=== PATIENT | female | born 1945 | race Caucasian/White ===

== ENCOUNTER 2025-02-14 18:50 | Emergency (ER) | payer BC, OTHER ==
[~2025-02-14] VITALS: Ht 152.4 cm; Wt 88.5 kg
--- NOTE | 2025-02-14 19:24 | ED.PDOC ---
History of Present Illness(SKN HPI Comments A 79 year-old female presents to the ED with a chief complaint of puncture wound to the R hand with associated surrounding erythema, swelling, and pain S/P cat bite X4 days ago. Patient states she was seen at Urgent Care the day of the incident and sent home with Augmentin. Patient states she took Augmentin daily, as prescribed. Patient went to Urgent Care again today and was told to come to the ED for further evaluation. Patient has no further complaints at this time. Vital signs were stable. Chief Complaint: Animal Bite Time Seen by MD: 19:12 History of Present Illness: Nurses Notes, Medications, Allergies Information Source: Patient Mode of Arrival: Ambulatory Severity: Moderate Timing: Days Duration: Since onset Prehospital treatment: None Location: Hand (Right ) Mechanism: Cat Developed: Generalized erythema Occurence: Indoors Tetanus: UTD Associated Signs and Symptoms: Redness, Swelling Past Medical History PAST MEDICAL HISTORY: Denies Surgical History: Denies all surgeries GLOBAL ACCOUNT EXECUTIVE History: No Pertinent GLOBAL ACCOUNT EXECUTIVE History Family History Family History: Reviewed,noncontributory to illness, No family hx of Cancer, No family hx of DM, No family hx of Heart macrina, No family hx of HTN, No family hx ofKidney macrina, No family hx of Liver macrina, No family hx of Lung macrina, No family hx of Stroke Social History Smoker: Non-Smoker Alcohol: Denies ETOH Use Drugs: Denies Drug Use Lives In: Home Constitutional: denies: chills, diaphoresis, fatigue, fever, malaise, sweats, weakness, others EENTM: denies: blurred vision, double vision, ear bleeding, ear discharge, ear drainage, ear pain, ear ringing, eye pain, eye redness, hearing loss, mouth pain, mouth swelling, nasal discharge, nose bleeding, nose congestion, nose pain, photophobia, tearing, throat pain, throat swelling, voice changes, others Respiratory: denies: cough, hemoptysis, orthopnea, SOB at rest, shortness of breath, SOB with excertion, stridor, wheezing, others Cardiovascular: denies: chest pain, dizzy spells, diaphoresis, Dyspnea on exertion, edema, irregular heart beat, left arm pain, lightheadedness, palpitations, PND, syncope, others Gastrointestinal: denies: abdomen distended, abdominal pain, blood streaked bowels, constipated, diarrhea, dysphagia, difficulty swallowing, hematemesis, melena, nausea, poor appetite, poor fluid intake, rectal bleeding, rectal pain, vomiting, others Genitourinary: denies: abnormal vagina bleeding, burning, dyspareunia, dysuria, flank pain, frequency, hematuria, incontinence, pain, , vagina discharge, urgency, others Neurological: denies: dizziness, fainting, headache, left sided numbness, left sided weakness, numbness, paresthesia, pre-existing deficit, right sided numbness, right sided weakness, seizure, speech problems, tingling, tremors, weakness, others Musculoskeletal: denies: back pain, gout, joint pain, joint swelling, muscle pain, muscle stiffness, neck pain, others Integumetry: reports: wounds (with surrounding erythema ), others (pain and swelling at the site ); denies: bruises, change in color, change in hair/nails, dryness, laceration, lesions, lumps, rash Allergic/Immunocompromised: denies: Difficulty Healing, Frequent Infections, Hives, Itching, others Hematologic/Lymphatic: denies: anemia, blood clots, easy bleeding, easy bruising, swollen glands, others Endocrine: denies: excessive hunger, excessive sweating, excessive thirst, excessive urination, flushing, intolerance to cold, intolerance to heat, unexplained weight gain, unexplained weight loss, others Psychiatric: denies: anxiety, bipolar disorder, depression, hopeless, panic disorder, schizophrenia, sleepless, suicidal, others All Other Systems: Reviewed and Negative Physical Exam General Appearance: Mild Distress (Moderate distress due to right hand pain concerns.), Obese HEENT: Normal ENT Inspection, Pharynx Normal, TMs Normal Neck: Full Range of Motion, Non-Tender, Normal, Normal Inspection Respiratory: Chest Non-Tender, Lungs Clear, No Accessory Muscle Use, No Respiratory Distress, Normal Breath Sounds Cardiovascular: No Edema, No JVD, No Murmur, No Gallop, Normal Peripheral Pulses, Regular Rate/Rhythm Breast Exam: Deferred Gastrointestinal: No Organomegaly, Non Tender, No Pulsatile Mass, Normal Bowel Sounds, Soft Genitalia: Deferred Pelvic: Deferred Rectal: Deferred Extremities: Other (Patient displays erythema and edema throughout the lateral aspect and dorsal aspect of the right hand extending from the 1st digit through the 3rd digit. Multiple puncture wounds noted from prior cat bite. Wound a ppears angry. No weeping noted.) Neurologic: Alert Cerebellar Function: NOT DONE Reflexes: NOT DONE Skin: Dry, Normal Color, Warm Lymphatic: No Adenopathy Was a procedure done? Was a procedure done?: No Differential Diagnosis (INTG) Differential Diagnosis: Cellulitis, Puncture Wound, Other (Cat bite) X-Ray, Labs, Meds, VS Vital Signs Date Time Temp Pulse Resp B/P (MAP) Pulse Ox O2 Delivery O2 Flow Rate FiO2 02/14/25 18:56 98.1 93 18 146/65 97 98.1 Lab Test 02/14/25 19:37 Range/Units White Blood Count 13.7 H 4.4-10.8 10^3/uL Red Blood Count 4.57 4.0-5.20 10^6/uL Hemoglobin 13.2 12.2-16.2 g/dL Hematocrit 39.0 36.0-46.0 % Mean Corpuscular Volume 85.3 80.0-100.0 fL Mean Corpuscular Hemoglobin 28.8 28.0-32.0 pg Mean Corpuscular Hemoglobin Concent 33.8 32.0-36.0 g/dL Red Cell Distribution Width 14.1 11.8-14.3 % Platelet Count 320 140-450 10^3/uL Mean Platelet Volume 7.2 6.9-10.8 fL Neutrophils (%) (Auto) 73.1 37.0-80.0 % Lymphocytes (%) (Auto) 18.5 10.0-50.0 % Monocytes (%) (Auto) 5.8 0.0-12.0 % Eosinophils (%) (Auto) 1.8 0.0-7.0 % Basophils (%) (Auto) 0.8 0.0-2.0 % Neutrophils # (Auto) 10.0 H 1.6-8.6 10 ^3/uL Lymphocytes # (Auto) 2.5 0.4-5.4 10 ^3/uL Monocytes # (Auto) 0.8 0-1.3 10 ^3/uL Eosinophils # (Auto) 0.3 0-0.8 10 ^3/uL Basophils # (Auto) 0.1 0-0.2 10 ^3/uL Nucleated Red Blood Cells 0.1 % Sodium Level 140 136-145 mmol/L Potassium Level 3.7 3.5-5.1 mmol/L Chloride Level 103 98-107 mmol/L Carbon Dioxide Level 26 20-31 mmol/L Anion Gap 11 5-15 Blood Urea Nitrogen 10 9-23 mg/dL Creatinine 0.78 0.550-1.02 mg/dL Glomerular Filtration Rate Calc 76 >90 mL/min BUN/Creatinine Ratio 12.8 10.0-20.0 Serum Glucose 163 H 74-106 mg/dL Lactic Acid Level 1.0 0.4-2.0 mmol/L Calcium Level 9.6 8.7-10.4 mg/dL [facility] [id number] [place] [address] Ph: [phone] DIAGNOSTIC IMAGING Diagnostic Imaging Report : [id number] Signed PATIENT: JUAN TORREZACCT: [id number] UNIT: [id number] : 1945 LOC: ER ROOM / BED: / AGE / SEX: 79 / F ADM STATUS: REG ER SERVICE 10 ORDERING PHYSICIAN: JAMES DIA PAC PROCEDURE(s): RHAN - R HAND 3 VIEW XRAY REASON: Cat bite/cellulitis/abscess evaluation ORDER NUMBER(s): [id number], ACCESSION NUMBER(s): [id number] EXAM: XY R HAND 3 VIEW XRAY INDICATION: Cat bite/cellulitis/abscess evaluation TECHNIQUE: 3 views of the right hand COMPARISON: None FINDINGS/IMPRESSION: No radiographic evidence of an acute osseous abnormality. There is no acute fr acture, osseous malalignment, or aggressive focal osseous lesion. Mild degenerative change of the distal interphalangeal joints with joint space loss. Mild degenerative change of the 1st carpometacarpal joint diffusely decreased bone mineral density. X-Ray, Labs, Meds, VS Comment All studies performed the ED were evaluated by me personally. Serum studies were unremarkable for any systemic concerns and x-ray was unremarkable for any foreign body or subcutaneous gas trapping. Patient was given a dose of Rocephin prior to discharge. Additional antibiotics will be added to the patient's current Augmentin medication. Images Reviewed?: Images reviewed and evaluated by me Time of 1ST Reevaluation: 22:14 Reevaluation 1ST: Improved Consultation: PCP Patient Education/Counseling: Diagnosis, Treatment Family Education/Counseling: Diagnosis, Treatment, No Family Present Medical Screening: No EMC Exist At This Time SEPSIS Sepsis Screen Date sepsis recognized/suspect: Feb 14, 2025 Time Sepsis recognized/suspect: 1857 Recent Procedure: No On Antibiotic Therapy: No Respiratory Rate >20: No Heart Rate >90: No Temp<36 C (96.8 F) or >38.3 C: No SBP <90 or MAP <65 mmHG: No New Acute Mental Status Change: No Is the patient on CPAP, BIPAP,: No Physician Orders R Hand 3 View Xray (02/14/25 19:11) Ceftriaxone Ivpb Rocephin (02/14/25 22:15) Dexamethasone Injection (Decadron Inject (02/14/25 22:15) Vital Signs Date Time Temp Pulse Resp B/P (MAP) Pulse Ox O2 Delivery O2 Flow Rate FiO2 02/14/25 18:56 98.1 93 18 146/65 97 98.1 Laboratory Tests Test 02/14/25 19:37 Lactic Acid Level 1.0 mmol/L (0.4-2.0) White Blood Count 13.7 10^3/uL (4.4-10.8) H Departure 1 Departure Time of Disposition: 22:15 Impression: Primary Impression: Cellulitis Disposition: HOME / SELF CARE / HOMELESS Condition: Stable Additional Instructions: Advised patient to continue with the Augmentin as prescribed and add the Bactrim to the antibiotic schedule. Pain medication as needed. e-Prescriptions Ibuprofen (Ibuprofen) 600 Mg Tab 1 TAB PO Q6HP PRN, #20 TAB Prov: JAMES DIA PAC 02/14/25 Sulfamethoxazole W/Trimethopri (Bactrim Ds Tablet) 1 Tab Tb 1 TAB PO BID for 10 Days, #20 TAB Prov: JAMES DIA PAC 02/14/25 Discharged With: Self, Friend Critical Care Note Critical Care Time?: No Stability Stability form required: No Heart Score Heart Score: Heart Score Response (Comments) Value History N/A 0 EKG N/A 0 Age N/A 0 Risk Factors N/A 0 Troponin N/A 0 Total 0 I personally scribed for JAMES DIA PAC ([email or web address]) on 9/27/25 at 19:24. Electronically submitted by Jasmin Russo ([email or web address]). I personally scribed for JAMES DIA PAC ([email or web address]) on 02/14/25 at 19:27. Electronically submitted by Jasmin Russo ([email or web address]). I personally scribed for JAMES DIA PAC ([employer]) on 02/14/25 at 19:44. Electronically submitted by Jasmin Russo ([email or web address]). JAMES DIA PAC Feb 14, 2025 19:24
--- NOTE | 2025-02-14 19:40 | DVH ---
EXAM: XY R HAND 3 VIEW XRAY INDICATION: Cat bite/cellulitis/abscess evaluation TECHNIQUE: 3 views of the right hand COMPARISON: None FINDINGS/IMPRESSION: No radiographic evidence of an acute osseous abnormality. There is no acute fracture, osseous malalig nment, or aggressive focal osseous lesion. Mild degenerative change of the distal interphalangeal jimy nts with joint space loss. Mild degenerative change of the 1st carpometacarpal joint diffusely decrea sed bone mineral density.
[2025-02-14 19:52] LABS: Hematocrit 39.0 % (36.0-46.0); Hemoglobin 13.2 g/dL (12.2-16.2); Mean Corpuscular Hemoglobin 28.8 pg (28.0-32.0); Mean Corpuscular Volume 85.3 fL (80.0-100.0); Nucleated Red Blood Cells % 0.1 %
[2025-02-14 20:03] LABS: Chloride 103 mmol/L (98-107); Potassium 3.7 mmol/L (3.5-5.1); Sodium 140 mmol/L (136-145)
[2025-02-14 20:04] LABS: Anion Gap 11 (5-15); Calcium 9.6 mg/dL (8.7-10.4); Carbon Dioxide 26 mmol/L (20-31)
[2025-02-14 20:09] LABS: BUN/Creatinine Ratio 12.8 (10.0-20.0); Blood Urea Nitrogen 10 mg/dL (9-23)
[2025-02-14 20:15] LABS: Glucose 163 mg/dL (74-106)
[2025-02-14] MEDS ORDERED: IBUP-1454 PO (22:16)
[2025-02-14] MEDS ORDERED: BACDST PO (22:16)
[2025-02-14 22:34] VITALS: BP 136/62; PULSE 66; RESP 16; TEMP 97.9; O2SAT 95
== END 2025-02-14 22:57 | disposition home or self-care (01) ==
LOC: ER 18:53
DX: L03.113 Cellulitis of right upper limb (principal); M19.041 Primary osteoarthritis, right hand; M85.80 Other specified disorders of bone density and structure, unspecified site
CPT/HCPCS: 36415; 73130; 80048; 83605; 85025; 96365; 96372; 99284; J0696; J1100